=== PATIENT | male | born 1955 ===

== ENCOUNTER 2024-06-16 09:31 | Outpatient (CLI) | payer MEDICARE, OTHER, SELFPAY ==
--- NOTE | 2024-06-16 09:36 | CT_ITS ---
WS: [id number] CT SINUSES TECHNIQUE: Noncontrast CT of the paranasal sinuses with coronal and sagittal reformatted images. CLINICAL INFORMATION: OTHER CHRONIC SINUSITIS/POLYP OF NASAL CAVITY COMPARISON: None. DLP: 368.[address] scans at [facility] use at least one of these dose optimization techniques: automated e xposure control; mA and/or kV adjustment per patient size (includes targeted exams where dose is matc hed to clinical indication); or iterative reconstruction. FINDINGS: Mild nasal septal deviation measuring 2 to 3 mm. Polypoid mucosal thickening in the LEFT greater than RIGHT maxillary sinuses measuring 8.6 mm LEFT maxillary sinus. Small retention cyst RIGHT maxillary sinus measuring 8 mm. Opacification of the RIGHT ostiomeatal unit. Partial opacification RIGHT ethmoi d air cells. LEFT ostiomeatal unit is patent. Frontal sinuses are well aerated. Sphenoid sinuses are well aerated. Sphenoid sinus ostia are patent . Mastoid air cells are well aerated. Vascular calcification. CT/CT sinus wo con* [id number] IMPRESSION: 1. Opacification RIGHT ostiomeatal unit. Partial opacification of the RIGHT fr ontoethmoidal recess and ethmoid air cells. 2. Polypoid mucosal thickening in the LEFT greater than RIGHT maxillary sinuse s measuring 8.6 mm on the LEFT. 3. Sphenoid sinuses are well aerated. 4. Mastoid air cells are well aerated. 5. Small retention cyst RIGHT maxillary sinus measuring 8 mm.
== END 2024-06-16 09:32 | disposition home or self-care (01) ==
LOC: RAD 09:34
PROVIDERS: PCP Nurse Practitioner Family; Visit Provider Specialist
DX: J01.20 Acute ethmoidal sinusitis, unspecified (principal); J33.0 Polyp of nasal cavity; J34.1 Cyst and mucocele of nose and nasal sinus; J34.89 Other specified disorders of nose and nasal sinuses
CPT/HCPCS: 70486